=== PATIENT | female | born 1950 ===

== ENCOUNTER 2020-06-08 09:58 | Outpatient (CLI) | payer OTHER ==
[~2020-06-08 09:58] MED LIST: ATACAND HCT 11 UDTA1 PO; KLONOPIN2 MG/TAB PO
== END 2020-06-08 10:05 | disposition home or self-care (01) ==
LOC: MRI 09:58
PROVIDERS: ATTEND Internal Medicine Rheumatology
DX: M48.07 Spinal stenosis, lumbosacral region (principal); M54.12 Radiculopathy, cervical region; M54.16 Radiculopathy, lumbar region; M54.17 Radiculopathy, lumbosacral region; M54.15 Radiculopathy, thoracolumbar region; M54.14 Radiculopathy, thoracic region
CPT/HCPCS: 72146; 72148

== ENCOUNTER 2020-06-15 07:31 | Outpatient (CLI) | payer OTHER | END 2020-06-15 07:48 | disposition home or self-care (01) | LOC: NUCLEAR 07:31 | PROVIDERS: ATTEND Internal Medicine | DX: I11.9 Hypertensive heart disease without heart failure (principal); E11.9 Type 2 diabetes mellitus without complications; E78.2 Mixed hyperlipidemia; M05.79 Rheumatoid arthritis with rheumatoid factor of multiple sites without organ or systems involvement; M87.059 Idiopathic aseptic necrosis of unspecified femur | CPT/HCPCS: 78306; 93306; A9503 ==

== ENCOUNTER 2020-09-10 10:45 | Outpatient (CLI) | payer OTHER | END 2020-09-10 10:53 | disposition home or self-care (01) | LOC: MAMO-SONO 10:45 → SONOGRAMA 10:45 | PROVIDERS: ATTEND Psychiatry & Neurology Neurology | DX: E07.9 Disorder of thyroid, unspecified (principal) ==

== ENCOUNTER 2022-05-25 09:14 | Outpatient (CLI) | payer OTHER | END 2022-05-25 09:15 | disposition home or self-care (01) | LOC: RX STUDY 09:14 | PROVIDERS: ATTEND Internal Medicine Gastroenterology | DX: R13.10 Dysphagia, unspecified (principal) ==

== ENCOUNTER 2022-06-20 11:39 | Outpatient (CLI) | payer OTHER | END 2022-06-20 14:14 | disposition home or self-care (01) | LOC: RAD 11:39 | PROVIDERS: ATTEND Orthopaedic Surgery | DX: M25.561 Pain in right knee (principal); M25.562 Pain in left knee ==

== ENCOUNTER 2022-07-07 13:55 | Outpatient (CLI) | payer OTHER | END 2022-07-07 14:10 | disposition home or self-care (01) | LOC: PPH VACUNA 13:55 | PROVIDERS: ATTEND Emergency Medicine Pediatric Emergency Medicine | DX: Z23 Encounter for immunization (principal) ==

== ENCOUNTER 2022-10-11 10:47 | Outpatient (CLI) | payer OTHER | END 2022-10-11 10:54 | disposition home or self-care (01) | LOC: RAD 10:47 | PROVIDERS: ATTEND Orthopaedic Surgery | DX: M25.512 Pain in left shoulder (principal) ==

== ENCOUNTER 2022-12-23 09:41 | Outpatient (CLI) | payer OTHER | END 2022-12-23 09:42 | disposition home or self-care (01) | LOC: SONOGRAMA 09:41 | PROVIDERS: ATTEND Orthopaedic Surgery | DX: M75.121 Complete rotator cuff tear or rupture of right shoulder, not specified as traumatic (principal); M75.122 Complete rotator cuff tear or rupture of left shoulder, not specified as traumatic ==

== ENCOUNTER 2023-01-03 10:57 | Outpatient (CLI) | payer OTHER | END 2023-01-03 11:11 | disposition home or self-care (01) | LOC: MAMO-SONO 10:57 | PROVIDERS: ATTEND Internal Medicine | DX: K76.0 Fatty (change of) liver, not elsewhere classified (principal); R10.84 Generalized abdominal pain; N60.11 Diffuse cystic mastopathy of right breast; N60.12 Diffuse cystic mastopathy of left breast ==